=== PATIENT | male | born 1990 | race Caucasian/White ===

== ENCOUNTER 2016-06-28 09:16 | Emergency (ER) | payer OTHER, MEDICAID ==
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
[2016-06-28] MEDS ORDERED: NORMAL SALINE 1000 ML 1,000 ML IV ONE ×2 (09:47→09:48)
[2016-06-28 10:03] LABS: ABSOLUTE EOSINOPHILS # (AUTO) 0.2 10^3/uL (0.0-0.6); ABSOLUTE LYMPHOCYTES (AUTO) 2.4 10^3/uL (0.5-4.7); ABSOLUTE MONOCYTES (AUTO) 0.9 10^3/uL (0.1-1.4); ABSOLUTE NEUT (AUTO) 5.2 10^3/uL (1.7-8.2); BASOPHILS % (AUTO) 0.4 % (0-2); EOSINOPHILS % (AUTO) 2.2 % (0-6); HEMATOCRIT 49.1 % (37.9-51.0); HEMOGLOBIN 17.1 g/dL (13.5-17.0); HGB HCT DIFFERENCE 2.2; LYMPHOCYTES % (AUTO) 27.4 % (13-45); MEAN CORPUSCULAR HEMOGLOBIN 31.8 pg (27.0-33.4); MEAN CORPUSCULAR HGB CONC 34.8 g/dL (32.0-36.0); MEAN CORPUSCULAR VOLUME 91 fl (80-97); MONOCYTES % (AUTO) 9.9 % (3-13); RED BLOOD COUNT 5.39 10^6/uL (4.35-5.55); RED CELL DISTRIBUTION WIDTH 13.4 % (11.5-14.0); SEGMENTED NEUTROPHILS % (AUTO) 60.1 % (42-78); WHITE BLOOD COUNT 8.7 10^3/uL (4.0-10.5)
[2016-06-28 10:22] LABS: ANION GAP 13 (5-19); BLOOD UREA NITROGEN 20 mg/dL (7-20); CALCIUM 9.9 mg/dL (8.4-10.2); CARBON DIOXIDE 28 mmol/L (22-30); CHLORIDE 103 mmol/L (98-107); CREATININE RESULT 1.15 mg/dL (0.52-1.25); GLUCOSE 88 mg/dL (75-110); POTASSIUM 4.2 mmol/L (3.6-5.0); SODIUM 144.2 mmol/L (137-145)
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
[2016-06-28 15:08] VITALS: BP 104/60
== END 2016-06-28 15:08 | disposition home or self-care (01) ==
LOC: ER 09:16
DX: M54.9 Dorsalgia, unspecified (principal); M54.2 Cervicalgia; M79.641 Pain in right hand; M54.5 Low back pain; V89.2XXA Person injured in unspecified motor-vehicle accident, traffic, initial encounter
CPT/HCPCS: 99284; 96360; 96361; 36415; 85025; 80048; 73130; 72110; 70450; 72125; J7030

== ENCOUNTER 2016-08-12 05:39 | Inpatient (IN) | payer MEDICAID ==
[2016-08-12] MEDS ORDERED: NORMAL SALINE 1000 ML 1,000 ML IV ONE (06:51)
[2016-08-12] MEDS ORDERED: VANCOMYCIN HCL INJ 1000 MG VIAL IV ONE (06:51)
[2016-08-12 07:09] LABS: ABSOLUTE LYMPHOCYTES (AUTO) 1.4 10^3/uL (0.5-4.7); ABSOLUTE MONOCYTES (AUTO) 1.1 10^3/uL (0.1-1.4); ABSOLUTE NEUT (AUTO) 6.2 10^3/uL (1.7-8.2); BASOPHILS % (AUTO) 0.2 % (0-2); EOSINOPHILS % (AUTO) 0.4 % (0-6); HEMATOCRIT 44.1 % (37.9-51.0); HEMOGLOBIN 14.9 g/dL (13.5-17.0); HGB HCT DIFFERENCE 0.6; LYMPHOCYTES % (AUTO) 15.8 % (13-45); MEAN CORPUSCULAR HEMOGLOBIN 31.2 pg (27.0-33.4); MEAN CORPUSCULAR HGB CONC 33.8 g/dL (32.0-36.0); MEAN CORPUSCULAR VOLUME 92 fl (80-97); RED BLOOD COUNT 4.78 10^6/uL (4.35-5.55); RED CELL DISTRIBUTION WIDTH 13.3 % (11.5-14.0); SEGMENTED NEUTROPHILS % (AUTO) 70.6 % (42-78); WHITE BLOOD COUNT 8.7 10^3/uL (4.0-10.5)
[2016-08-12 07:24] LABS: ANION GAP 12 (5-19); BLOOD UREA NITROGEN 15 mg/dL (7-20); CALCIUM 9.3 mg/dL (8.4-10.2); CARBON DIOXIDE 23 mmol/L (22-30); CHLORIDE 104 mmol/L (98-107); CREATININE RESULT 0.98 mg/dL (0.52-1.25); GLUCOSE 88 mg/dL (75-110); SODIUM 139.2 mmol/L (137-145)
[2016-08-12] MEDS ORDERED: PIPERACILLIN/TAZOBACTAM 4.5 GM VIAL IV ONE (08:34)
--- NOTE | 2016-08-12 08:36 | ER Document Report ---
ED General - General Chief Complaint: Skin Problem Stated Complaint: SKIN INFECTION RIGHT ANKLE AND LEG Time Seen by Provider: 08/12/16 06:47 TRAVEL OUTSIDE OF THE [place] IN LAST 30 DAYS: No - HPI Patient complains to provider of: Cellulitis right foot Notes: Patient coming in for evaluation of cellulitis of his right leg. Patient states had a red area on his ankle approximate 2 days ago seen in urgent care diagnosed cellulitis started on clindamycin states compliance with his medication regimen however the redness continues to spread. Patient right ankle is also swollen with erythema to the mid alcazar. Patient denies any past medical history denies fever chills nausea vomiting diarrhea - Related Data Allergies/Adverse Reactions: No Known Allergies Allergy (Unverified 06/28/16 09:19) Home Medications: Current Home Medications Aripiprazole [Abilify 10 mg Tablet] 10 mg PO DAILY 08/12/16 [History] Buspirone HCl [Buspar 15 mg Tablet] 15 mg PO TID 08/12/16 [History] Clindamycin HCl [Cleocin 300 mg Capsule] 300 mg PO TID 08/12/16 [History] Clonidine HCl [Catapres 0.1 mg Tablet] 0.1 mg PO Q12HP PRN 08/12/16 [History] Past Medical History - Social History Smoking Status: Never Smoker Chew tobacco use (# tins/day): No Frequency of alcohol use: None Drug Abuse: None Family History: Reviewed & Not Pertinent Patient has suicidal ideation: No Patient has homicidal ideation: No - Past Medical History Cardiac Medical History: Reports: Hx Hypertension Renal/ Medical History: Denies: Hx Peritoneal Dialysis Past Surgical History: Reports: Hx Orthopedic Surgery - left knee - Immunizations Hx Diphtheria, Pertussis, Tetanus Vaccination: Yes Review of Systems - Review of Systems Constitutional: No symptoms reported EENT: No symptoms reported Cardiovascular: No symptoms reported Respiratory: No symptoms reported Gastrointestinal: No symptoms reported Genitourinary: No symptoms reported Male Genitourinary: No symptoms reported Musculoskeletal: No symptoms reported Skin: Other - Cellulitis Hematologic/Lymphatic: No symptoms reported Neurological/Psychological: No symptoms reported Physical Exam - Vital signs Vitals: Temp Pulse Resp BP Pulse Ox 98.3 F 94 20 156/76 H 99 08/12/16 06:01 08/12/16 06:01 08/12/16 06:01 08/12/16 06:01 08/12/16 06:01 Interpretation: Normal - General General appearance: Appears well, Alert - HEENT Head: Normocephalic, Atraumatic Eyes: Normal Pupils: PERRL - Respiratory Respiratory status: No respiratory distress Chest status: Nontender Breath sounds: Normal Chest palpation: Normal - Cardiovascular Rhythm: Regular Heart sounds: Normal auscultation Murmur: No - Abdominal Inspection: Normal Distension: No distension Bowel sounds: Normal Tenderness: Nontender Organomegaly: No organomegaly - Back Back: Normal, Nontender - Extremities General upper extremity: Normal inspection, Nontender, Normal color, Normal ROM , Normal temperature General lower extremity: Normal inspection, Nontender, Normal color, Normal ROM , Normal temperature, Normal weight bearing. No: Katarzyna's sign - Neurological Neuro grossly intact: Yes Cognition: Normal Orientation: AAOx4 [place] Coma Scale Eye Opening: Spontaneous Laura Coma Scale Verbal: Oriented [place] Coma Scale Motor: Obeys Commands [place] Coma Scale Total: 15 Speech: Normal Motor strength normal: LUE, RUE, LLE, RLE Sensory: Normal - Psychological Associated symptoms: Normal affect, Normal mood - Skin Skin Temperature: Warm Skin Moisture: Dry Skin Color: Other - Edema to the right leg along the medial side of the ankle with swelling and erythema to the midshin Course - Re-evaluation Re-evalutation: 08/12/16 14:38 Patient coming in concerned about possible cellulitic process with failed outpatient treatment discussed with hospitalist will admit for further evaluation - Vital Signs Vital signs: Temp Pulse Resp BP Pulse Ox 98.2 F 77 12 137/69 H 96 08/12/16 11:41 08/12/16 11:41 08/12/16 11:41 08/12/16 11:41 08/12/16 11:41 - Laboratory Result Diagrams: 08/12/16 06:50 08/12/16 06:50 Discharge - Discharge Clinical Impression: Cellulitis Qualifiers: Site of cellulitis: unspecified site Qualified Code(s): L03.90 - Cellulitis, unspecified Admitting Provider: Hospitalist - [facility] Unit Admitted: Medical Floor
[2016-08-12] MEDS ORDERED: ONDANSETRON HCL INJ/PF 4 MG/2 ML SDV IV PRN (08:42)
[2016-08-12] MEDS ORDERED: ACETAMINOPHEN 325 MG TABLET PO PRN (08:42)
[2016-08-12] MEDS ORDERED: ZOLPIDEM TARTRATE 5 MG TABLET PO PRN (08:42)
[2016-08-12] MEDS ORDERED: VANCOMYCIN HCL 0 MG in DEXTROSE 5%-WATER 250 ML IV NR (08:45)
--- NOTE | 2016-08-12 10:01 | PDOC H&P ---
History of Present Illness Admission Date/PCP: 08/12/16 09:02 Patient complains of: Worsening skin infection right foot and ankle History of Present Illness: OSVALDO DAS JR is a 26 year old male medical history of essential hypertension, presents with worsening redness and swelling of the right foot and ankle. He states the redness and swelling began on Saturday morning. He was seen at a local urgent care on oral clindamycin. Despite taking clindamycin for the last 2 days the swelling has worsened. He denies any fever or chills. He states he scraped the inner right ankle on something helping a friend move on . He denies any other trauma to the area. His tetanus is up to date. Past Medical History Cardiac Medical History: Reports: Hypertension Pulmonary Medical History: Reports: None EENT Medical History: Reports: None Neurological Medical History: Reports: None Endocrine Medical History: Reports: None Renal/ Medical History: Reports: None Malignancy Medical History: Reports: None GI Medical History: Reports: None Musculoskeltal Medical History: Reports: None Skin Medical History: Reports: None Psychiatric Medical History: Reports: None Traumatic Medical History: Reports: None Hematology: Reports: None Infectious Medical History: Reports: None Past Surgical History Past Surgical History: Reports: Orthopedic Surgery - left knee Social History Information Source: Patient Lives with: Spouse/Significant other Smoking Status: Never Smoker Frequency of Alcohol Use: Occasional Hx Recreational Drug Use: No Hx Prescription Drug Abuse: No - Advance Directive Resuscitation Status: Full Code Family History Family History: Hypertension Parental Family History Reviewed: Yes Children Family History Reviewed: NA Sibling(s) Family History Reviewed.: Yes Medication/Allergy Home Medications: Hydrocodone Bit/Acetaminophen [Hydrocodon-Acetaminophen 5-325] 1 each PO Q6 #20 tablet 06/28/16 Allergies/Adverse Reactions: No Known Allergies Allergy (Unverified 06/28/16 09:19) Review of Systems Constitutional: ABSENT: chills, fever(s), headache(s), weight gain, weight loss Eyes: ABSENT: visual disturbances Ears: ABSENT: hearing changes Cardiovascular: ABSENT: chest pain, dyspnea on exertion, edema, orthropnea, palpitations Respiratory: ABSENT: cough, hemoptysis Gastrointestinal: ABSENT: abdominal pain, constipation, diarrhea, hematemesis, hematochezia, nausea, vomiting Genitourinary: ABSENT: dysuria, hematuria Integumentary: PRESENT: erythema, other - Swelling right medial foot and ankle up to midcalf Neurological: ABSENT: abnormal gait, abnormal speech, confusion, dizziness, focal weakness, syncope Psychiatric: ABSENT: anxiety, depression, homidical ideation, suicidal ideation Endocrine: ABSENT: cold intolerance, heat intolerance, polydipsia, polyuria Hematologic/Lymphatic: ABSENT: easy bleeding, easy bruising Physical Exam Vital Signs: Temp Pulse Resp BP Pulse Ox 97.7 F 76 16 136/72 H 98 08/12/16 09:14 08/12/16 09:14 08/12/16 09:14 08/12/16 09:14 08/12/16 09:14 General appearance: PRESENT: no acute distress, well-developed, well-nourished Head exam: PRESENT: atraumatic, normocephalic Eye exam: PRESENT: conjunctiva pink, EOMI, PERRLA. ABSENT: scleral icterus Mouth exam: PRESENT: moist, tongue midline Neck exam: ABSENT: carotid bruit, JVD, lymphadenopathy, thyromegaly Respiratory exam: PRESENT: clear to auscultation milka. ABSENT: rales, rhonchi, wheezes Cardiovascular exam: PRESENT: RRR. ABSENT: diastolic murmur, rubs, systolic murmur Pulses: PRESENT: normal dorsalis pedis pul Vascular exam: PRESENT: normal capillary refill GI/Abdominal exam: PRESENT: normal bowel sounds, soft. ABSENT: distended, guarding, mass, organolmegaly, rebound, tenderness Rectal exam: PRESENT: deferred Extremities exam: PRESENT: calf tenderness, full ROM, pedal edema - right foot and ankle, +1 edema Neurological exam: PRESENT: alert, awake, oriented to person, oriented to place , oriented to time, oriented to situation, CN II-XII grossly intact. ABSENT: motor sensory deficit Psychiatric exam: PRESENT: appropriate affect, normal mood. ABSENT: homicidal ideation, suicidal ideation Skin exam: PRESENT: dry, intact, warm. ABSENT: cyanosis, rash Assessment & Plan - Time Time Spent: 50 to 70 Minutes Critical Time spent with patient: 25-34 minutes Medications reviewed and adjusted accordingly: Yes Anticipated discharge: Home
[2016-08-12] MEDS ORDERED: CLONIDINE HCL 0.1 MG TABLET PO PRN (11:24)
[2016-08-12] MEDS: BUSPIRONE HCL 10 MG TABLET PO SCH ×2 (14:51→21:49)
[2016-08-12] MEDS: VANCOMYCIN HCL 1,500 MG in DEXTROSE 5%-WATER 250 ML IV SCH ×2 (14:52→21:49)
[2016-08-12] MEDS: PIPERACILLIN SODIUM/TAZOBACTAM 4.5 GM in NORMAL SALINE 100 ML IV SCH ×2 (19:18→21:49)
[2016-08-12] MEDS: OXYCODONE-ACETAMINOPHEN 5-325 MG TABLET PO PRN (21:49)
[2016-08-12] MEDS: KETOROLAC TROMETHAMINE INJ/PF 30 MG/1 ML SDV IV PRN (22:24)
[2016-08-13] MEDS: PIPERACILLIN SODIUM/TAZOBACTAM 4.5 GM in NORMAL SALINE 100 ML IV SCH ×4 (03:18→21:24)
[2016-08-13] MEDS: BUSPIRONE HCL 10 MG TABLET PO SCH ×3 (06:00→21:25)
[2016-08-13] MEDS: VANCOMYCIN HCL 1,500 MG in DEXTROSE 5%-WATER 250 ML IV SCH ×4 (06:11→23:22)
[2016-08-13 06:39] LABS: ABSOLUTE EOSINOPHILS # (AUTO) 0.2 10^3/uL (0.0-0.6); ABSOLUTE MONOCYTES (AUTO) 1.1 10^3/uL (0.1-1.4); ABSOLUTE NEUT (AUTO) 3.4 10^3/uL (1.7-8.2); BASOPHILS % (AUTO) 0.4 % (0-2); EOSINOPHILS % (AUTO) 2.6 % (0-6); HEMATOCRIT 42.2 % (37.9-51.0); HEMOGLOBIN 14.5 g/dL (13.5-17.0); HGB HCT DIFFERENCE 1.3; LYMPHOCYTES % (AUTO) 30.6 % (13-45); MEAN CORPUSCULAR HEMOGLOBIN 31.9 pg (27.0-33.4); MEAN CORPUSCULAR HGB CONC 34.3 g/dL (32.0-36.0); MEAN CORPUSCULAR VOLUME 93 fl (80-97); MONOCYTES % (AUTO) 15.8 % (3-13); RED BLOOD COUNT 4.54 10^6/uL (4.35-5.55); RED CELL DISTRIBUTION WIDTH 13.3 % (11.5-14.0); SEGMENTED NEUTROPHILS % (AUTO) 50.6 % (42-78); WHITE BLOOD COUNT 6.7 10^3/uL (4.0-10.5)
[2016-08-13 06:49] LABS: ANION GAP 8 (5-19); BLOOD UREA NITROGEN 12 mg/dL (7-20); CALCIUM 8.8 mg/dL (8.4-10.2); CARBON DIOXIDE 25 mmol/L (22-30); CHLORIDE 106 mmol/L (98-107); CREATININE RESULT 1.01 mg/dL (0.52-1.25); GLUCOSE 102 mg/dL (75-110); POTASSIUM 4.1 mmol/L (3.6-5.0); SODIUM 139.2 mmol/L (137-145)
[2016-08-13] MEDS: ARIPIPRAZOLE 5 MG TABLET PO SCH (09:23)
[2016-08-13] MEDS ORDERED: (PENDING PHARMACY ID) (Aripiprazole [Abilify 10 Mg Tablet] 10 MG) PO SCH (10:00)
--- NOTE | 2016-08-13 16:14 | PDOC PROGRESS REPORT ---
Subjective Progress Note for:: 08/13/16 Subjective:: Patient seen on morning rounds. He is resting comfortably in bed. He feels right lower extremity swelling in redness is improved since IV antibiotics are started. He denies any fever chills overnight. He denies any nausea, vomiting , abdominal pain or diarrhea. He denies any shortness of breath, palpitations or dizziness. Rest of the review of systems are negative except those mentioned. Physical Exam Vital Signs: Temp Pulse Resp BP Pulse Ox 98.8 F 86 18 130/70 H 99 08/13/16 11:36 08/13/16 11:36 08/13/16 11:36 08/13/16 11:36 08/13/16 11:36 Intake & Output 08/12/16 08/13/16 08/14/16 06:59 06:59 06:59 Intake Total 1620 Balance 1620 Weight 108.579 kg General appearance: PRESENT: no acute distress, obese, well-developed, well- nourished Head exam: PRESENT: atraumatic, normocephalic Eye exam: PRESENT: conjunctiva pink, EOMI, PERRLA. ABSENT: scleral icterus Ear exam: PRESENT: normal external ear exam Mouth exam: PRESENT: moist, tongue midline Neck exam: ABSENT: carotid bruit, JVD, lymphadenopathy, thyromegaly Respiratory exam: PRESENT: clear to auscultation milka. ABSENT: rales, rhonchi, wheezes Cardiovascular exam: PRESENT: RRR. ABSENT: diastolic murmur, rubs, systolic murmur Pulses: PRESENT: normal dorsalis pedis pul Vascular exam: PRESENT: normal capillary refill GI/Abdominal exam: PRESENT: normal bowel sounds, soft. ABSENT: distended, guarding, mass, organolmegaly, rebound, tenderness Rectal exam: PRESENT: deferred Extremities exam: PRESENT: full ROM. ABSENT: calf tenderness, clubbing, pedal edema Neurological exam: PRESENT: alert, awake, oriented to person, oriented to place , oriented to time, oriented to situation, CN II-XII grossly intact. ABSENT: motor sensory deficit Psychiatric exam: PRESENT: appropriate affect, normal mood. ABSENT: homicidal ideation, suicidal ideation Skin exam: PRESENT: dry, intact, warm, other - left knee incision without. ABSENT: cyanosis, rash Results Laboratory Results: 08/13/16 05:56 08/13/16 05:56 08/13/16 08/13/16 05:56 05:56 WBC 6.7 RBC 4.54 Hgb 14.5 Hct 42.2 MCV 93 MCH 31.9 MCHC 34.3 RDW 13.3 Plt Count 208 Seg Neutrophils % 50.6 Lymphocytes % 30.6 Monocytes % 15.8 H Eosinophils % 2.6 Basophils % 0.4 Absolute Neutrophils 3.4 Absolute Lymphocytes 2.0 Absolute Monocytes 1.1 Absolute Eosinophils 0.2 Absolute Basophils 0.0 Sodium 139.2 Potassium 4.1 Chloride 106 Carbon Dioxide 25 Anion Gap 8 BUN 12 Creatinine 1.01 Est GFR ( Amer) > 60 Est GFR (Non-Af Amer) > 60 Glucose 102 Calcium 8.8 Assessment & Plan - Diagnosis (1) Cellulitis of right lower extremity Is this a current diagnosis for this admission?: YesPlan: Continue IV antibiotics looks improved from yesterday (2) Essential (primary) hypertension Is this a current diagnosis for this admission?: YesPlan: Patient has been normotensive without medications (3) Depression with anxiety Is this a current diagnosis for this admission?: YesPlan: Continue home medication - Time Time Spent with patient: 25-34 minutes Critical Time spent with patient: 15-24 minutes Medications reviewed and adjusted accordingly: Yes Anticipated discharge: Home Within: within 48 hours
[2016-08-13] MEDS: OXYCODONE-ACETAMINOPHEN 5-325 MG TABLET PO PRN (21:27)
[2016-08-13] MEDS: KETOROLAC TROMETHAMINE INJ/PF 30 MG/1 ML SDV IV PRN (22:58)
[2016-08-14] MEDS: PIPERACILLIN SODIUM/TAZOBACTAM 4.5 GM in NORMAL SALINE 100 ML IV SCH ×2 (04:09→08:15)
[2016-08-14] MEDS: BUSPIRONE HCL 10 MG TABLET PO SCH ×3 (05:56→21:21)
[2016-08-14] MEDS: VANCOMYCIN HCL 1,500 MG in DEXTROSE 5%-WATER 250 ML IV SCH ×2 (05:56→11:54)
[2016-08-14 06:46] LABS: CREATININE RESULT 1.16 mg/dL (0.52-1.25)
[2016-08-14] MEDS: ARIPIPRAZOLE 5 MG TABLET PO SCH (10:55)
[2016-08-14] MEDS: OXYCODONE-ACETAMINOPHEN 5-325 MG TABLET PO PRN ×2 (12:01→17:21)
[2016-08-14] MEDS ORDERED: ONDANSETRON 4 MG TAB.RAPDIS PO PRN (13:21)
--- NOTE | 2016-08-14 13:44 | PROGRESS NOTE E ---
Progress Note NAME: OSVALDO DAS : 1990 AGE: 26Y DATE: 08/14/2016 ROOM: 421 SUBJECTIVE: The patient is lying in bed. He states that he feels better today. He denies any nausea, vomiting, diarrhea. No shortness of breath, dizziness, chest pain. No fevers, chills. Patient has been afebrile. Blood pressure has been in a good range. Patient does not voice any other concerns at this time. REVIEW OF SYSTEMS: The rest of the review of systems negative. MEDICATIONS: Medications have been reviewed. OBJECTIVE: GENERAL: The patient is 26-year-old male who is awake, alert, and oriented to person, place, time, and situation. He is verbal, conversational, and does not appear to be in any acute distress. VITAL SIGNS FOLLOWS: Temperature 98.7, pulse 67, respirations 18, blood pressure 145/83, oxygen saturation 99% on room air. SKIN: Warm and dry. No rashes. Not diaphoretic. HEENT: Pupils equal, round and reactive to light and accommodation. Conjunctivae are pink. NECK: No JVP. CARDIOVASCULAR: Heart is regular with no murmur or rub. CHEST: Clear, symmetric, unlabored. ABDOMEN: Soft, nontender, nondistended. BACK: No CVA tenderness, sacral edema. EXTREMITIES: Right lower extremity dose have redness noted to mid calf as well as edema. PSYCHIATRIC: Appropriate affect, pleasant mood. DIAGNOSTICS: Lab values are as follows: Hematology obtained on 08/13/2016: WBC 6.7, hemoglobin 14.5, hematocrit 42.2, platelet count is 208,000. Chemistry obtained on 08/13/2016: Sodium 139, potassium 4.1, chloride 106, carbon dioxide 25, BUN 12, creatinine 1.21, glucose 102, calcium 8.8. IMPRESSION AND PLAN: 1. RIGHT LOWER EXTREMITY CELLULITIS. Will continue antibiotic coverage with Zosyn. Will discontinue vancomycin for now. Will also obtain Doppler given the patient's level of edema and follow. 2. HYPERTENSION. Blood pressure has been in a good range. Will continue current medications. 3. DVT PROPHYLAXIS. Patient on subcu heparin given the patient is not ambulating at regular intervals. DISPOSITION: The patient is a FULL CODE. Pending patient's symptomatology and diagnostic findings, we will reevaluate in the a.m. Time spent on this followup including assessment, plan, physical examination, and patient education, review of records is 25 minutes. DICTATING PHYSICIAN: MIKE MANDUJANO [id number] PHY#: [id number] [id number] JOB#: [id number] ACCT: [id number] cc: >
[2016-08-14] MEDS: HEPARIN SOD (PORCINE) 5,000 UNIT/ML 1 ML SYRINGE SUBCUT SCH ×2 (16:29→21:22)
[2016-08-14] MEDS: PIPERACILLIN SODIUM/TAZOBACTAM 3.375 GM in NORMAL SALINE 100 ML IV SCH ×2 (16:29→21:20)
[2016-08-14] MEDS: KETOROLAC TROMETHAMINE INJ/PF 30 MG/1 ML SDV IV PRN (19:25)
--- NOTE | 2016-08-14 19:46 | XCELERA REPORT ---
[address] [address] Lower Extremity Venous Evaluation Name: OSVALDO DAS JR Age: 26 yrs Gender: Male : 1990 Patient Status: Inpatient Patient Location: 4W\S\[facility]\S\B Study Date: 08/14/2016 03:01 PM Procedure: Color flow and duplex imaging of the veins of the right lower extremity as well as the left Common Femoral vein. Reason For Study: RLE edema Ordering Physician: MIKE MANDUJANO Performed By: Sanjuana Fine Right Sided Venous Evaluation Normal vessel filling wall to wall, compression and augmentation as well as Colour flow down to the infrageniculate veins. Left Sided Venous Evaluation The left common femoral vein is fully compressible. Spontaneous and phasic flow is present in the left common femoral vein. Interpretation Summary No duplex evidence of DVT or obstruction in the right lower extremity nor in the left Common Femoral vein. : MIKE MANDUJANO [place]
[2016-08-15] MEDS: PIPERACILLIN SODIUM/TAZOBACTAM 3.375 GM in NORMAL SALINE 100 ML IV SCH (03:08)
[2016-08-15] MEDS: OXYCODONE-ACETAMINOPHEN 5-325 MG TABLET PO PRN (03:12)
[2016-08-15] MEDS: BUSPIRONE HCL 10 MG TABLET PO SCH (06:31)
[2016-08-15] MEDS: HEPARIN SOD (PORCINE) 5,000 UNIT/ML 1 ML SYRINGE SUBCUT SCH (06:32)
[2016-08-15 12:29] VITALS: BP 123/56
--- NOTE | 2016-08-15 14:44 | DISCHARGE SUMMARY E ---
Discharge Summary NAME: OSVALDO DAS : 1990 AGE: 26Y ADMITTED: 08/12/2016 DISCHARGED: 08/15/2016 CODE STATUS: FULL CODE. PRIMARY CARE PROVIDER: [facility]. DISCHARGE DIAGNOSES: Include: 1. Right lower extremity cellulitis. 2. Hypertension. DISCHARGE MEDICATIONS: Include: 1. Bactrim DS 1 tablet p.o. b.i.d. 2. Augmentin 875/125 one tablet p.o. b.i.d., 20 tablets, 0 refills. 3. Abilify 10 mg p.o. daily. 4. BuSpar 15 mg p.o. t.i.d. 5. Catapres 0.1 mg p.o. q.12 h. p.r.n. DIET: As tolerated. ACTIVITY: Keep right leg elevated, minimal weightbearing. HISTORY OF PRESENT ILLNESS: The patient is a 26-year-old man with a past medical history of hypertension. The patient presented to the emergency department with a chief complaint of worsening skin infection of his right foot and ankle. The patient had noted redness/swelling of his right foot and ankle that began the Saturday before admission. The patient had been seen at local urgent care and been started on oral clindamycin. Despite taking clindamycin for 48 hours, the swelling worsened. The patient denied any fevers, chills. The patient stated that he scraped his ankle on something while helping a friend move . The patient denies any trauma to the area, was up-to-date on his tetanus, denied any exposure to water, fresh or salt, and was referred to the hospitalist for admission and management. HOSPITAL COURSE: The patient was admitted to continuous telemetry unit. The patient was started on broad-spectrum antibiotic coverage, and the patient did have significant improvement of his symptoms. The patient, however, did remain edematous and red. The patient's Doppler was unremarkable. Blood cultures remained negative. Although the patient had made progress, I was not completely comfortable with the patient's symptoms and findings on assessment. The patient had threatened to leave against medical advice to go his son's baseball game. However, I strongly wanted the patient to have antibiotics, and therefore I explained the risk of discharge, and the patient has accepted these risks and wants to be discharged but has agreed to follow up closely with primary care provider. I am hesitant to agree to this; however, I do not want the patient to leave A at this time. DIAGNOSTICS: Lab values are as follows: Hematology obtained on 08/13/2016; WBCs are 6.7, hemoglobin is 14.5, hematocrit is 42.2, platelet count is 208,0000. Chemistry obtained on 08/13/2016: Sodium is 139, potassium 4.1, chloride is 106, carbon dioxide 25, BUN 12, creatinine is 1.06, glucose 102, calcium is 8.8. Toxicology obtained on 08/14/2016. Vancomycin trough 15.7. Microbiology: Blood cultures obtained on 08/12/2016 reveal no growth. Venous Doppler study obtained on 08/14/2016 was unremarkable. PHYSICAL EXAMINATION: GENERAL: On examination the patient is a well-developed, well-nourished, 26-year-old, male who is awake, still a little groggy, does not appear to be in any acute distress. VITAL SIGNS: As follows: Temperature is 98.4, pulse 61, respirations 18, blood pressure is 123/56, oxygen saturation is 99% on room air. SKIN: Warm and dry. No rash. Not diaphoretic. HEENT: Pupils equal, round, reactive to light and accommodation. Conjunctiva is pink. NECK: No JVD. CARDIOVASCULAR SYSTEM: Heart is regular. There is no murmur or rub. CHEST: Clear, symmetrical, unlabored. ABDOMEN: Soft, nontender, nondistended. BACK: No CVA tenderness, sacral edema. EXTREMITIES: No clubbing, cyanosis. Right lower extremity is still edematous and pitting. The redness has receded but still prominent and diffuse from midcalf to all his toes. PSYCHIATRIC: Appropriate affect. Pleasant mood. DISCHARGE PLANNING: The patient is to follow up with his primary care provider within 48 hours for hospital followup. TOTAL TIME SPENT: Time spent on this discharge including assessment, plan, physical examination, patient education, resource alignment is 25 minutes. DICTATING PHYSICIAN: MIKE MANDUJANO NP [id number] PHY#: [id number] ID: [id number] JOB#: [id number] ACCT: [id number] cc:MIKE MANDUJANO NP >
== END 2016-08-15 11:55 | disposition home or self-care (01) | DRG 603 ==
LOC: ER 05:39 → EH 08:42 → UNDOADMIN 09:02 → EH 09:02 → 4W 11:06
PROVIDERS: ADMIT Internal Medicine; ATTEND Internal Medicine
DX: L03.115 Cellulitis of right lower limb (principal); I10 Essential (primary) hypertension; F32.9 Major depressive disorder, single episode, unspecified; F41.9 Anxiety disorder, unspecified
CPT/HCPCS: 36415; 80048; 80202; 82565; 85025; 87040; 93971; 96365; 99284; J1644; J1885; J2543; J3370; J7030; J7060